=== PATIENT | female | born 1955 | race American Indian/Alaskan Native ===

== ENCOUNTER 2017-12-05 14:08 | Emergency (ER) | payer SELFPAY ==
[2017-12-05 14:14] VITALS: BP 150/87
--- NOTE | 2017-12-05 14:46 | Emergency Department Report ---
ED Rash HPI - HPI Chief Complaint: Skin Rash Stated Complaint: VAGINAL ITCH/RASH Time Seen by Provider: 12/05/17 14:34 Duration: 2 M Location: Other Suspected Cause: Unknown Rash Symptoms: Yes Itching, No Facial Swelling, No Tongue/Oral Swelling, No Breathing Difficulties, No Choking Sensation, No Wheezing/Dyspnea, No Peeling, No Blistering, No Fever, No Lightheaded, No Malaise, No Myalgias Severity: moderate ED Review of Systems ROS: Stated complaint: VAGINAL ITCH/RASH Other details as noted in HPI Comment: All other systems reviewed and negative Constitutional: denies: chills, fever ENT: denies: as per HPI, ear pain, throat pain Respiratory: denies: cough Cardiovascular: denies: palpitations Endocrine: denies: excessive sweating Gastrointestinal: denies: abdominal pain, nausea, vomiting, diarrhea, constipation, hematemesis, melena Genitourinary: denies: urgency, dysuria, frequency, hematuria, discharge Musculoskeletal: denies: back pain Skin: rash. denies: lesions Neurological: denies: headache, weakness Psychiatric: denies: anxiety, depression Hematological/Lymphatic: denies: easy bleeding ED Past Medical Hx - Past Medical History Previous Medical History?: No - Surgical History Past Surgical History?: No - Family History Family history: no significant - Social History Smoking Status: Never Smoker Substance Use Type: None - Medications Home Medications: Home Medications Medication Instructions Recorded Confirmed Last Taken Type Fluconazole [Diflucan] 150 mg PO DAILY #3 tablet 12/05/17 Unknown Rx Zinc Oxide [Dr. Castañeda's Adult 170 gm TP BID #1 bottle 12/05/17 Unknown Rx Barrier] Rash Exam - Exam General: Vital signs noted. No distress. Alert and acting appropriately. HEENT: No Periorbital Edema, No Conjuctival Injection, No Chemosis, No Perioral Edema, No Tongue Edema, No Uvular Edema, No Compromised Airway, No Drooling Lungs: Yes Good Air Exchange, No Wheezes, No Ronchi, No Stridor, No Cough, No Labored Respirations, No Retractions, No Use of Accessory Muscles, No Other Abnormal Lung Sounds Heart: Yes Regular, No Murmur (HR 90 ON EXAM; NO EDEMA; NO JVD) Skin: Yes Weeping, No Urticarial Rash, No Maculopapular Rash, No Morbilliform rash, No Bulla(e), No Excoriations, No Tenderness, No Erythema, No Edema, No Encrustations, No Other Other: Positive: Abdomen Normal, Neurologic Normal, Musculoskeletal Normal ED Course Vital Signs 12/05/17 14:12 Temperature 98.8 F Pulse Rate 101 H Respiratory 16 Rate Blood Pressure 150/87 O2 Sat by Pulse 97 Oximetry ED Medical Decision Making - Medical Decision Making PT HERE W VAGINAL ITCHING FOR 2 M SHE HAS TRIED ALL SORTS OF OTC CREAMS ON EXAM SHE HAS A RASH THAT LOOKS LIKE THAT OF A DIAPER RASH SHE IS OBESE. NO MED HX. NO DM. SHE DENIES VAG DC. OR BLEEDING. DENIES INCONTINENCE. POST MENOPAUSAL; SEX 6 M AGO NOT CONCERNED FOR STI RASH IS BETWEEN THE FOLDS OF SKIN- IN MOIST AREAS. INCLUDING THE FOLDS OF THE LEGS WILL TX WITH DIFLUCAN AND ZINC I EXPLAINED TO PT THAT SHE WILL NEED TO SEE PCP TO BE SURE IT CLEARS SHE HAS NO S/S OF SYSTEMIC ILLNESS - Differential Diagnosis SUZANNE V STI Critical care attestation.: If time is entered above; I have spent that time in minutes in the direct care of this critically ill patient, excluding procedure time. ED Disposition Clinical Impression: Vaginal yeast infection, Skin rash Disposition: DC-01 TO HOME OR SELFCARE Is pt being admited?: No Does the pt Need Aspirin: No Condition: Stable Instructions: Vulvovaginal Candidiasis (ED) Additional Instructions: KEEP AREA CLEAN AND DRY WEAR COTTON UNDERWEAR HYDRATE WELL MEDS ORDERED TODAY FOLLOW UP WITH PCP GIVEN BELOW EAT YOGURT DAILY Prescriptions: Fluconazole [Diflucan] 150 mg PO DAILY #3 tablet Zinc Oxide [Dr. Castañeda's Adult Barrier] 170 gm TP BID #1 bottle Referrals: FAM COTTER MD [Staff Physician] - 3-5 Days Time of Disposition: 14:43
== END 2017-12-05 14:52 | disposition home or self-care (01) ==
LOC: ED 14:08
DX: B37.3 Candidiasis of vulva and vagina (principal)
CPT/HCPCS: 99282